=== PATIENT | female | born 1960 | race Two or more races ===

== ENCOUNTER 2019-02-05 17:52 | Emergency (ER) | payer SELFPAY ==
[~2019-02-05] VITALS: Ht 152.4 cm; Wt 70.3 kg
[~2019-02-05 17:52] MED LIST: METFORMIN
[2019-02-05 21:31] VITALS: BP 134/74
== END 2019-02-05 21:47 | disposition home or self-care (01) ==
LOC: ER 17:52
DX: J32.9 Chronic sinusitis, unspecified (principal); E11.9 Type 2 diabetes mellitus without complications; E78.5 Hyperlipidemia, unspecified; I10 Essential (primary) hypertension; F17.210 Nicotine dependence, cigarettes, uncomplicated; Z98.51 Tubal ligation status
CPT/HCPCS: 70450; 82962

== ENCOUNTER 2019-12-28 10:48 | Emergency (ER) | payer SELFPAY ==
[~2019-12-28] VITALS: Ht 152.4 cm; Wt 68.5 kg
[2019-12-28] MEDS ORDERED: InsuLIN REG 1unit/0.01ml Soln (100units/ml) IV ONE (12:45)
[2019-12-28] MEDS ORDERED: SODIUM CHLORIDE 0.9% 1,000 ML IV ONE ×2 (12:45)
[2019-12-28] MEDS ORDERED: KETOROLAC TROMETH 30 MG/ML 1ML VIAL IV ONE (13:00)
[2019-12-28 13:28] LABS: Basophils # (auto) 0 10 ^3/uL (0-0.2); Eosinophils # (auto) 0.2 10 ^3/uL (0-0.8); Hemoglobin 12.7 g/dL (12.2-16.2); Lymphocytes # (auto) 2.3 10 ^3/uL (0.4-5.4); Monocytes # (auto) 0.2 10 ^3/uL (0-1.3); Neutrophils # (auto) 3.7 10 ^3/uL (1.6-8.6); Red Cell Distribution Width 13.2 % (11.8-14.3)
[2019-12-28 13:30] LABS: Basophils % (auto) 0.8 % (0.0-2.0); Hematocrit 38.2 % (36.0-46.0); Lymphocytes % (auto) 35.8 % (10.0-50.0); Mean Corpuscular Hemoglobin 27.3 pg (28.0-32.0); Mean Corpuscular Hgb Conc. 33.2 g/dL (32.0-36.0); Mean Corpuscular Volume 82.3 fL (80.0-100.0); Monocytes % (auto) 3.2 % (0.0-12.0); Neutrophils % (auto) 57.2 % (37.0-80.0); Platelet Count (auto) 477 10^3/uL (140-450); Red Blood Cells 4.64 10^6/uL (4.0-5.20); White Blood Cell 6.5 10^3/uL (4.4-10.8)
[2019-12-28 13:34] LABS: Calcium 8.5 mg/dL (8.5-10.1); Chloride 102 mmol/L (98-107); Potassium 3.7 mmol/L (3.5-5.1); Sodium 134 mmol/L (136-145)
[2019-12-28 13:43] LABS: Alanine Aminotransferase 36 U/L (13-56); Albumin 3.1 g/dL (3.4-5.0); Alkaline Phosphatase 107 U/L (45-117); Anion Gap 9 (5-15); Aspartate Aminotransferase 19 U/L (15-37); BUN/Creatinine Ratio 15.3; Bilirubin, Total 0.2 mg/dL (0.2-1.0); Blood Urea Nitrogen 11 mg/dL (7-18); Carbon Dioxide 23 mmol/L (21-32); GFR African American 107 mL/min; GFR Non-African American 88 mL/min; Glucose 289 mg/dL (74-106)
[2019-12-28 14:07] LABS: Urine Bacteria NONE SEEN /hpf (None Seen); Urine Blood Negative /uL (Negative); Urine Specific Gravity 1.029 (1.001-1.035); Urine WBC <1 /hpf (0 - 5)
[2019-12-28 15:35] VITALS: BP 140/76
== END 2019-12-28 16:27 | disposition home or self-care (01) ==
LOC: ER 10:48
DX: R51.9 Headache, unspecified (principal); I10 Essential (primary) hypertension; E11.65 Type 2 diabetes mellitus with hyperglycemia; Z98.51 Tubal ligation status
CPT/HCPCS: 36415; 80053; 81001; 82962; 84484; 85025; 96361; 96374; 96375; 99285; J1815; J1885; J7030

== ENCOUNTER 2020-07-21 20:24 | Emergency (ER) | payer MEDICAID ==
[~2020-07-21] VITALS: Ht 152.4 cm; Wt 68.0 kg
[2020-07-21] MEDS ORDERED: SODIUM CHLORIDE 0.9% 2,000 ML IV ONE (20:45)
[2020-07-21 21:04] LABS: Basophils # (auto) 0.1 10 ^3/uL (0-0.2); Basophils % (auto) 1.2 % (0.0-2.0); Eosinophils # (auto) 0.2 10 ^3/uL (0-0.8); Eosinophils % (auto) 3.2 % (0.0-7.0); Hematocrit 40.2 % (36.0-46.0); Hemoglobin 13.6 g/dL (12.2-16.2); Lymphocytes # (auto) 2.9 10 ^3/uL (0.4-5.4); Lymphocytes % (auto) 43.6 % (10.0-50.0); Mean Corpuscular Hgb Conc. 33.8 g/dL (32.0-36.0); Monocytes # (auto) 0.4 10 ^3/uL (0-1.3); Monocytes % (auto) 6.1 % (0.0-12.0); Neutrophils # (auto) 3.1 10 ^3/uL (1.6-8.6); Neutrophils % (auto) 45.9 % (37.0-80.0); Nucleated Red Blood Cells % 0.1 %; Platelet Count (auto) 484 10^3/uL (140-450); Red Blood Cells 4.85 10^6/uL (4.0-5.20); Red Cell Distribution Width 13.4 % (11.8-14.3); White Blood Cell 6.7 10^3/uL (4.4-10.8)
[2020-07-21 21:22] LABS: Anion Gap 9 (5-15); Carbon Dioxide 26 mmol/L (21-32); Chloride 96 mmol/L (98-107); Sodium 131 mmol/L (136-145)
[2020-07-21 21:23] LABS: Albumin 3.9 g/dL (3.4-5.0); Blood Urea Nitrogen 19 mg/dL (7-18); Calcium 9.4 mg/dL (8.5-10.1)
[2020-07-21 21:27] LABS: Alanine Aminotransferase 30 U/L (13-56); Alkaline Phosphatase 135 U/L (45-117); Aspartate Aminotransferase 16 U/L (15-37); BUN/Creatinine Ratio 21.3; Bilirubin, Total 0.3 mg/dL (0.2-1.0); GFR African American 83 mL/min; GFR Non-African American 69 mL/min; Total Protein 8.2 g/dL (6.4-8.2)
[2020-07-21 21:30] LABS: Glucose 478 mg/dL (74-106)
[2020-07-21] MEDS: ACCU-CHEK COMFORT CURVE STRIP VI SCH ×3 (21:34→23:47)
[2020-07-22 01:22] LABS: Urine Bacteria NONE SEEN /hpf (None Seen); Urine Blood Negative /uL (Negative); Urine Specific Gravity 1.016 (1.001-1.035); Urine WBC <1 /hpf (0 - 5)
[2020-07-22 06:00] VITALS: BP 127/70
== END 2020-07-22 06:26 | disposition home or self-care (01) ==
LOC: ER 20:24
DX: M54.5 Low back pain (principal); E11.65 Type 2 diabetes mellitus with hyperglycemia; I10 Essential (primary) hypertension; E78.5 Hyperlipidemia, unspecified; Z79.899 Other long term (current) drug therapy; Z88.8 Allergy status to other drugs, medicaments and biological substances
CPT/HCPCS: 36415; 72100; 80053; 81001; 82010; 82962; 84484; 85025; 93005; 96360; 96361; 99285; J7030

== ENCOUNTER 2020-10-13 17:20 | Emergency (ER) | payer SELFPAY ==
[~2020-10-13] VITALS: Ht 152.4 cm; Wt 68.0 kg
[2020-10-13 18:22] LABS: Basophils # (auto) 0.1 10 ^3/uL (0-0.2); Lymphocytes # (auto) 2.6 10 ^3/uL (0.4-5.4); Monocytes # (auto) 0.5 10 ^3/uL (0-1.3); Monocytes % (auto) 6.9 % (0.0-12.0)
[2020-10-13 18:24] LABS: Eosinophils # (auto) 0.2 10 ^3/uL (0-0.8); Eosinophils % (auto) 3.3 % (0.0-7.0); Hematocrit 38.4 % (36.0-46.0); Hemoglobin 13.1 g/dL (12.2-16.2); Lymphocytes % (auto) 37.1 % (10.0-50.0); Mean Corpuscular Hemoglobin 27.9 pg (28.0-32.0); Mean Corpuscular Hgb Conc. 34.1 g/dL (32.0-36.0); Mean Corpuscular Volume 81.8 fL (80.0-100.0); Neutrophils # (auto) 3.6 10 ^3/uL (1.6-8.6); Neutrophils % (auto) 51.7 % (37.0-80.0); Red Blood Cells 4.69 10^6/uL (4.0-5.20); Red Cell Distribution Width 13.2 % (11.8-14.3)
[2020-10-13 18:38] LABS: Alanine Aminotransferase 21 U/L (13-56); Albumin 3.7 g/dL (3.4-5.0); Anion Gap 9 (5-15); Aspartate Aminotransferase 9 U/L (15-37); BUN/Creatinine Ratio 21.7; Blood Urea Nitrogen 13 mg/dL (7-18); Calcium 9.2 mg/dL (8.5-10.1); Carbon Dioxide 25 mmol/L (21-32); Chloride 107 mmol/L (98-107); GFR African American 132 mL/min; GFR Non-African American 109 mL/min; Glucose 159 mg/dL (74-106); Potassium 3.9 mmol/L (3.5-5.1); Sodium 141 mmol/L (136-145)
[2020-10-13 18:42] LABS: Alkaline Phosphatase 102 U/L (45-117); Bilirubin, Total 0.3 mg/dL (0.2-1.0); Total Protein 8.1 g/dL (6.4-8.2)
[2020-10-13 20:05] VITALS: BP 132/72
== END 2020-10-13 20:38 | disposition home or self-care (01) ==
LOC: ER 17:20
DX: R07.89 Other chest pain (principal); I10 Essential (primary) hypertension; E78.5 Hyperlipidemia, unspecified; E11.9 Type 2 diabetes mellitus without complications; F17.210 Nicotine dependence, cigarettes, uncomplicated; Z98.51 Tubal ligation status
CPT/HCPCS: 36415; 71046; 80053; 84484; 85025; 93005

== ENCOUNTER 2022-05-28 17:28 | Emergency (ER) | payer MEDICAID ==
[2022-05-28 19:09] VITALS: BP 185/94
[2022-05-28] MEDS ORDERED: IBUP800T26 PO (20:18)
== END 2022-05-28 21:09 | disposition home or self-care (01) ==
LOC: EDBD 17:28 → ER 17:28
DX: S82.002A Unspecified fracture of left patella, initial encounter for closed fracture (principal); I10 Essential (primary) hypertension; E11.9 Type 2 diabetes mellitus without complications; E78.5 Hyperlipidemia, unspecified; F17.210 Nicotine dependence, cigarettes, uncomplicated; Z79.1 Long term (current) use of non-steroidal anti-inflammatories (NSAID); Z88.8 Allergy status to other drugs, medicaments and biological substances; W01.0XXA Fall on same level from slipping, tripping and stumbling without subsequent striking against object, initial encounter; Y93.89 Activity, other specified; Y92.89 Other specified places as the place of occurrence of the external cause; Y99.8 Other external cause status
CPT/HCPCS: 73562

== ENCOUNTER 2024-10-30 11:44 | Emergency (ER) | payer MEDICAID ==
[~2024-10-30] VITALS: Ht 154.9 cm; Wt 65.0 kg
[~2024-10-30 11:44] MED LIST changes: +IBUP-1455 PO
--- NOTE | 2024-10-30 12:38 | DVH ---
EXAM: XY L FOOT 3 VIEW XRAY CLINICAL INDICATION: FALL TECHNIQUE: XY L FOOT 3 VIEW XRAY Comparison: None FINDINGS/IMPRESSION: Nondisplaced fracture distal 5th phalanx. Soft tissue swelling is present.
[2024-10-30 12:54] VITALS: BP 142/76; PULSE 76; RESP 18; TEMP 97.3; O2SAT 95
[2024-10-30] MEDS ORDERED: ACET-1304 PO (12:59)
--- NOTE | 2024-10-30 13:02 | ED.PDOC ---
Musculoskeletal HPI Comments A 63 YEAR OLD FEMALE PRESENTS TO THE ED WITH COMPLAINT OF LOWER EXTREMITY PAIN. PATIENT REPORTS ON WALKING DOWN HER HALLWAY HOME WHEN SHE HIT HER LEFT FOOT AGAINST A SUITCASE. PATIENT DENIES FEVER, CHILLS, SHORTNESS OF BREATH, CHEST PAIN, ABDOMINAL PAIN, NAUSEA, VOMITING, HEADACHE, OR OTHER COMPLAINTS. NO OTHER SYMPTOMS OR MODIFYING FACTORS AT THIS TIME. PATIENT IS ALERT, ORIENTED X 4, AND HAS STEADY GAIT. Chief Complaint: Lower Extremity Time Seen by MD: 13:00 Primary Care Provider: NONE Reviewed Notes: Nurses Notes, Medications, Allergies Allergies: Coded Allergies: Benzyl Alcohol (Verified Allergy, Unknown, 12/28/19) JOIN LOCK Prochlorperazine (Verified Allergy, Unknown, 12/28/19) JOIN LOCK Saccharin (Verified Allergy, Unknown, 12/28/19) JOIN LOCK Home Meds Active Scripts Acetaminophen (Tylenol Extra Strength Fo) 500 Mg Tab, 1000 MG PO BID, #30 TAB Prov:AILYN FARRIS 10/30/24 Ibuprofen Micronized (Ibuprofen) 800 Mg Tab, 800 MG PO TID PRN for 14 Days, #42 TAB Prov:JOON BARNEY 05/28/22 Reported Medications [metformin husbands med] No Conflict Check 01/09/12 Information Source: Patient Mode of Arrival: Ambulatory Location: Left Extremity Location: Little Toe Timing: Minutes Prehospital treatment: None Severity: Moderate Able to Move Extremity: Yes Bear Weight: Limited Pain: Moderate Hand Dominance: Right Mechanism: Blunt Trauma Circumstances: Accident Onset of Symptoms: Spontaneous, After Trauma Symptoms: Swelling, Pain DVT Risk Factors: NONE Last Tetanus: Unknown Associated signs and symptoms: Foot pain Past Medical History PAST MEDICAL HISTORY: Cancer, DM, High Lipids, HTN, UTI'S Surgical History: Tubal Ligation VP SECURITIES History: No Pertinent VP SECURITIES History Family History Family History: Reviewed,noncontributory to illness, Unknown Social History Smoker: Less Than 1 Pack/Day Alcohol: Denies ETOH Use Drugs: Denies Drug Use Lives In: Home Constitutional: denies: chills, diaphoresis, fatigue, fever, malaise, sweats, weakness, others EENTM: denies: blurred vision, double vision, ear bleeding, ear discharge, ear drainage, ear pain, ear ringing, eye pain, eye redness, hearing loss, mouth pain, mouth swelling, nasal discharge, nose bleeding, nose congestion, nose pain, photophobia, tearing, throat pain, throat swelling, voice changes, others Respiratory: denies: cough, hemoptysis, orthopnea, SOB at rest, shortness of breath, SOB with excertion, stridor, wheezing, others Cardiovascular: denies: chest pain, dizzy spells, diaphoresis, Dyspnea on exertion, edema, irregular heart beat, left arm pain, lightheadedness, palpitations, PND, syncope, others Gastrointestinal: denies: abdomen distended, abdominal pain, blood streaked bowels, constipated, diarrhea, dysphagia, difficulty swallowing, hematemesis, melena, nausea, poor appetite, poor fluid intake, rectal bleeding, rectal pain, vomiting, others Genitourinary: denies: abnormal vagina bleeding, burning, dyspareunia, dysuria, flank pain, frequency, hematuria, incontinence, pain, , vagina discharge, urgency, others Neurological: denies: dizziness, fainting, headache, left sided numbness, left sided weakness, numbness, paresthesia, pre-existing deficit, right sided numbness, right sided weakness, seizure, speech problems, tingling, tremors, weakness, others Musculoskeletal: reports: joint pain, joint swelling, others (Nondisplaced fracture distal 5th phalanx.); denies: back pain, gout, muscle pain, muscle stiffness, neck pain Integumetry: denies: bruises, change in color, change in hair/nails, dryness, laceration, lesions, lumps, rash, wounds, others Allergic/Immunocompromised: denies: Difficulty Healing, Frequent Infections, Hives, Itching, others Hematologic/Lymphatic: denies: anemia, blood clots, easy bleeding, easy bruising, swollen glands, others Endocrine: denies: excessive hunger, excessive sweating, excessive thirst, excessive urination, flushing, intolerance to cold, intolerance to heat, unexplained weight gain, unexplained weight loss, others Psychiatric: denies: anxiety, bipolar disorder, depression, hopeless, panic disorder, schizophrenia, sleepless, suicidal, others All Other Systems: Reviewed and Negative Physical Exam General Appearance: No Apparent Distress, Normal HEENT: Normal ENT Inspection, PERRL/EOMI, Pharynx Normal, TMs Normal Neck: Full Range of Motion, Non-Tender, Normal, Normal Inspection Respiratory: Chest Non-Tender, Lungs Clear, No Accessory Muscle Use, No Respiratory Distress, Normal Breath Sounds Cardiovascular: No Edema, No JVD, No Murmur, No Gallop, Normal Peripheral Pulses, Regular Rate/Rhythm Breast Exam: Deferred Gastrointestinal: No Organomegaly, Non Tender, No Pulsatile Mass, Normal Bowel Sounds, Soft Genitalia: Deferred Pelvic: Deferred Rectal: Deferred Extremities: Decreased range of motion, No calf tenderness, Normal capillary refill, No pedal edema, Swelling (TENDERNESS AND MIL;D SWELLING ON LEFT 5TH TOE, NO OPEN WOUND AND DEFORMITY. ), Tender (BONY TENDERNESS AND MILD SWELLING ON LEFT 5TH TOE, NO DEFORMITY. ) Musculoskeletal : Apperance: Normal Neurologic: Alert, appeals representative II-XII nml as Tested, No Motor Deficits, Normal Affect, Normal Mood, No Sensory Deficits Cerebellar Function: Normal Reflexes: Normal Skin: Dry, Normal Color, Warm Peripheral Pulses: 2+ carotid (R), 2+ carotid (L), 2+ dorsalis pedis (R), 2+ dorsalis pedis (L) Lymphatic: No Adenopathy Was a procedure done? Was a procedure done?: No Differential Diagnosis EXT Differential Diagnosis: Fracture, Sprain, Contusion, Strain, N/A Other Differential Diagnosis Nondisplaced fracture distal 5th phalanx. X-Ray, Labs, Meds, VS Vital Signs Date Time Temp Pulse Resp B/P (MAP) Pulse Ox O2 Delivery O2 Flow Rate FiO2 10/30/24 12:54 97.3 76 18 142/76 (98) 95 97.3 10/30/24 12:54 76 18 95 Room Air 10/30/24 11:45 97.3 76 18 142/76 95 97.3 PATIENT: ABKARI ANGELACCT: [id number]: [id number] : 1960 LOC: ER ROOM / BED: / AGE / SEX: 63 / F ADM STATUS: REG ER SERVICE 1159 ORDERING PHYSICIAN: AILYN FARRIS PROCEDURE(s): LFOOT - L FOOT 3 VIEW XRAY REASON: FALL ORDER NUMBER(s): [id number], ACCESSION NUMBER(s): [id number] EXAM: XY L FOOT 3 VIEW XRAY CLINICAL INDICATION: FALL TECHNIQUE: XY L FOOT 3 VIEW XRAY Comparison: None FINDINGS/IMPRESSION: Nondisplaced fracture distal 5th phalanx. Soft tissue swelling is present. ATED BY: JOSHUA SONG MD DICTATED DATE/TIME: 10/30/24 1236 SIGNED BY: JOSHUA SONG MD SIGNED DATE/TIME: 10/30/24 1236 CC: X-Ray, Labs, Meds, VS Comment EXTERNAL MEDICAL RECORDS REVIEWED: [NONE] INDEPENDENT HISTORIANS: [NONE] SOCIAL DETERMINANTS OF HEALTH: [NONE] LABS ORDERED: NONE REVIEWED AND INTERPRETED RESULTS: NONE IMAGING ORDERED: XRAY TREATMENTS ORDERED: POST OP SHOE. PROCEDURES PERFORMED: NONE CRITICAL CARE TIME: NONE I HAVE DISCUSSED THE PATIENT WITH THE ATTENDING PHYSICIAN DR. ALCAZAR AND HE AGREES WITH THE PATIENT'S PLAN OF CARE AND DISPOSITION. BASED ON HISTORY OF PRESENT ILLNESS, AND PHYSICAL EXAM, PATIENT WILL BE DISCHARGED HOME. DISCUSSED PLAN FOR DISCHARGE HOME WITH RX TYLENOL. MEDICATION WARNINGS GIVEN. SHARED DECISION MAKING: DISCUSSED WITH PATIENT THAT THEIR WORKUP WAS NORMAL. PATIENT INSTRUCTED TO FOLLOW UP WITH PRIMARY CARE PROVIDER IN 1-2 DAYS FOR RE- EVALUATION OF SYMPTOMS. PATIENT VERBALIZES UNDERSTANDING TO RETURN TO ED FOR NEW OR WORSENING SYMPTOMS OR IF FOLLOW UP WITH PCP CANNOT BE OBTAINED. PATIENT FEELS COMFORTABLE GOING HOME AT THIS TIME. ALL QUESTIONS ADDRESSED AT TIME OF DISCHARGE. Time of 1ST Reevaluation: 13:30 Reevaluation 1ST: Improved Patient Education/Counseling: Diagnosis, Treatment, Need For Follow Up Family Education/Counseling: Diagnosis, Treatment, No Family Present Medical Screening: No EMC Exist At This Time Departure 1 Departure Time of Disposition: 13:07 Impression: Primary Impression: Closed fracture of phalanx of left fifth toe Qualified Codes: S92.502A - Displaced unspecified fracture of left lesser toe(s), initial encounter for closed fracture Disposition: 01 HOME / SELF CARE / HOMELESS Condition: Stable Additional Instructions: F/U PCP IN 2 DAYS RECHECK. IF CONDITION BECOME WORSE, RETURN TO ED [facility]. e-Prescriptions Acetaminophen (Tylenol Extra Strength Fo) 500 Mg Tab 1000 MG PO BID, #30 TAB Prov: AILYN FARRIS 10/30/24 Discharged With: Self Critical Care Note Critical Care Time?: No Stability Stability form required: No I personally scribed for AILYN FARRIS ([email or web address]) on 10/30/24 at 13:02. Electro nically submitted by Son Siddiqui ([email or web address]). AILYN FARRIS Oct 30, 2024 13:02
== END 2024-10-30 13:04 | disposition home or self-care (01) ==
LOC: ER 11:44
DX: S92.502A Displaced unspecified fracture of left lesser toe(s), initial encounter for closed fracture (principal); E11.9 Type 2 diabetes mellitus without complications; F17.210 Nicotine dependence, cigarettes, uncomplicated; I10 Essential (primary) hypertension; X58.XXXA Exposure to other specified factors, initial encounter; Y93.89 Activity, other specified; Y92.89 Other specified places as the place of occurrence of the external cause; Y99.8 Other external cause status; Z98.51 Tubal ligation status
CPT/HCPCS: 73630